=== PATIENT | female | born 1960 | race Caucasian/White ===

== ENCOUNTER 2022-08-12 19:00 | Outpatient (CLI) | payer OTHER | END 2022-08-12 19:01 | disposition home or self-care (01) | LOC: SLEEPLAB 19:00 | PROVIDERS: ATTEND Internal Medicine | DX: G47.33 Obstructive sleep apnea (adult) (pediatric) (principal) | CPT/HCPCS: 95810 ==

== ENCOUNTER 2025-05-11 12:10 | Day surgery (SDC) | payer MEDICARE ==
[2025-05-10 15:43] VITALS: BMI 49.8
[2025-05-11] MEDS ORDERED: GLYCOPYRROLATE/PF 0.2 MG/ML VIAL ONE (13:20)
[2025-05-11] MEDS ORDERED: Lidocaine 1% PF 5 ML VIAL ONE ×2 (14:26→14:49)
[2025-05-11] MEDS ORDERED: PROPOFOL 200 MG/20 ML VIAL ONE (14:26)
== END 2025-05-11 15:31 | disposition home or self-care (01) ==
LOC: SDC 12:10
PROVIDERS: ATTEND Internal Medicine Gastroenterology
PROC: 0D998ZX Drainage of Duodenum, Via Natural or Artificial Opening Endoscopic, Diagnostic (ICD-10-PCS; principal; 2025-05-11)
DX: K29.50 Unspecified chronic gastritis without bleeding (principal); E80.6 Other disorders of bilirubin metabolism; I48.91 Unspecified atrial fibrillation; K64.9 Unspecified hemorrhoids; G47.30 Sleep apnea, unspecified; Z88.0 Allergy status to penicillin; Z88.6 Allergy status to analgesic agent; Z88.8 Allergy status to other drugs, medicaments and biological substances; Z91.040 Latex allergy status; Z91.041 Radiographic dye allergy status; Z95.0 Presence of cardiac pacemaker; Z98.84 Bariatric surgery status; Z87.891 Personal history of nicotine dependence; Z90.49 Acquired absence of other specified parts of digestive tract; Z90.710 Acquired absence of both cervix and uterus; Z79.899 Other long term (current) drug therapy
CPT/HCPCS: 43239; J2704; J3490; 88305; 88342